=== PATIENT | male | born 1950 | race Caucasian/White ===

== ENCOUNTER 2022-02-08 02:32 | Emergency (ER) | payer MEDICARE, OTHER ==
[2022-02-08] MEDS: Alum Hydroxide/Mag Hydroxide 15 ML, Lidocaine 2% 15 ML PO ONE ×2 (03:01)
[2022-02-08 03:23] LABS: ESTIMATED GFR 64 mL/min (>60)
[2022-02-08] MEDS: cloNIDine 0.1 MG Tab PO ONE (03:36)
== END 2022-02-08 04:00 | disposition home or self-care (01) ==
LOC: FB.ED 02:32
DX: K29.70 Gastritis, unspecified, without bleeding (principal); K21.9 Gastro-esophageal reflux disease without esophagitis; F41.9 Anxiety disorder, unspecified; Z95.1 Presence of aortocoronary bypass graft
CPT/HCPCS: 36415; 80053; 84484; 85025; 93005; 99285; A9270-GY